=== PATIENT | female | born 1935 | race African-American/Black ===

== ENCOUNTER 2016-12-20 17:07 | Emergency (ER) | payer MEDICARE, OTHER ==
[~2016-12-20 17:07] MED LIST: 8 HOUR650 MG PO; ARAVA20 PO; ASAB PO; ASABAYER PO; CALCIUM PO; CALTRA600D PO; CARDCD240 PO; CARTIA XT240 MG/24 PO; CEFT5 PO; CONSTULOSE PO; COREG6 PO; DILT-XR240 MG PO; EZFE 200200 MG PO; GLUCOTRO10 PO; GLUCOTROL5 PO; HCTZ25B PO; HYDROCHLOROT25 MG PO; IMDUR30 PO; INSULIN; INSULIN SQ; IRON325 MG PO; KDUR20 PO; KLOR-CON 1010 MEQ PO; KLOR-CON M1010 MEQ PO; KLOR-CON M2020 MEQ PO; KLOR-CON20 MEQ PO; L40 PO; LANTUS SC; LANTUSCART SC; LIPITOR40 PO; MIRALAXPKT PO; MOBIC7.5 PO; NOVOLOG SC; OS500+D PO; P10 PO; P5 PO; PREDNISONE2.5 MG PO; PROTONIX PO; SPIRO25 PO; TYLENOL ARTH650 MG PO; ULTRAM50 PO; VIT D PO; VITAMIN D PO; VITAMIN D1000 UNI1 PO; VITAMIN E PO; VITD PO; ZOFRAN8 PO
[2016-12-22] MEDS ORDERED: CONSTULOSE PO (04:59)
[2016-12-22] MEDS ORDERED: KDUR10 PO (04:59)
[2016-12-22] MEDS ORDERED: URSO FORTE500 MG PO (05:00)
[2016-12-22] MEDS ORDERED: DEMA10T PO (05:00)
[2016-12-22] MEDS ORDERED: ARAVA10 PO (05:00)
== END 2016-12-20 18:00 | disposition home or self-care (01) ==
LOC: ER 17:07
DX: M25.561 Pain in right knee (principal); M25.551 Pain in right hip; I11.0 Hypertensive heart disease with heart failure; I50.9 Heart failure, unspecified; E11.9 Type 2 diabetes mellitus without complications; Z79.4 Long term (current) use of insulin; Z79.82 Long term (current) use of aspirin; Z79.52 Long term (current) use of systemic steroids; Z79.899 Other long term (current) drug therapy
CPT/HCPCS: 73502-RT; 73560-RT; 96372; 99283; J2405

== ENCOUNTER 2016-12-21 10:28 | Emergency (ER) | payer MEDICARE, OTHER ==
[2016-12-21 09:30] LABS: BASOPHILS 0.3 %; BASOPHILS ABSOLUTE 0.03 10/3/uL (0.0-0.16); EOSINOPHILS ABSOLUTE 0.19 10/3/uL (0.0-0.53); HEMATOCRIT 30.1 % (36.0-48.0); HEMOGLOBIN 9.4 g/dL (12.0-16.0); IMMATURE GRANULOCYTES 0.2 %; IMMATURE GRANULOCYTES ABSOLUTE 0.02 10/3/uL (0.0-0.11); LYMPHOCYTES 4.5 %; LYMPHOCYTES ABSOLUTE 0.42 10/3/uL (0.67-4.30); MEAN CORPUS HGB CONC 31.2 g/dL (32.0-36.0); MEAN CORPUSCULAR HEMOGLOB 30.5 pg (26.0-34.0); MEAN CORPUSCULAR VOLUME 97.7 fL (80-100); MONOCYTES 9.8 %; MONOCYTES ABSOLUTE 0.92 10/3/uL (0.21-1.20); NEUTROPHILS 83.2 %; NEUTROPHILS ABSOLUTE 7.77 10/3/uL (2.02-8.40); PLATELET COUNT 227 10/3/uL (150-400); RED CELL COUNT 3.08 10/6/uL (4.0-5.6); WHITE BLOOD CELLS 9.4 10/3/uL (4.5-10.5)
[2016-12-21 09:31] LABS: MANUAL DIFF NO %; RBC DISTRIBUTION WIDTH 15.8 % (12.0-16.0)
[2016-12-21 09:48] LABS: A/G RATIO 0.6 (0.7-1.9); ALBUMIN 2.2 G/DL (3.5-5.0); ALKALINE PHOSPHATASE 108 U/L (45-117); BUN (BLOOD UREA NITROGEN) 22 MG/DL (6-23); CALCIUM, SERUM 8.4 MG/DL (8.5-10.4); CHLORIDE, SERUM 106 MMOL/L (96-112); CO2 (CARBON DIOXIDE) 28 MMOL/L (24-34); CREATININE 1.77 MG/DL (0.55-1.02); GFR AFRICAN AMERICAN 31 ML/MIN (>=60); GFR NON AFRICAN AMERICAN 27 ML/MIN (>=60); GLOBULIN 3.4 G/DL (2.5-4.1); GLUCOSE, SERUM 157 MG/DL (60-99); POTASSIUM, SERUM 3.9 MMOL/L (3.5-5.3); PROTIME (NOT ORD) 13.2 SEC (12.0-14.5); SGOT(AST) 42 U/L (5-40); SGPT(ALT) 19 U/L (5-65); SODIUM, SERUM 143 MMOL/L (135-148); TOTAL BILIRUBIN 0.6 MG/DL (0-1.2); TOTAL PROTEIN 5.6 G/DL (6.0-8.5)
[2016-12-21 09:55] LABS: LACTATE 2.2 MMOL/L (0.3-2.4)
[2016-12-21 10:04] LABS: ASCORBIC ACID (UR NOT ORDER) 20 (NEG); BILIRUBIN, URINE NEGATIVE (NEG); ER URINALYSIS TAT 0 Hrs 15 Mins; KETONE, URINE NEGATIVE (NEG); LEUKOCYTE ESTERASE(NOT OR NEG (NEG); NITRITE (URINE) NEG (NEG); WBC (NOT ORDERED) (RFLEX) < 1 (0-5)
[2016-12-21 10:30] LABS: PROCALCITONIN 0.57 ng/mL (<0.5)
[2016-12-22] MEDS ORDERED: KDUR10 PO (04:59)
[2016-12-22] MEDS ORDERED: CONSTULOSE PO (04:59)
[2016-12-22] MEDS ORDERED: ARAVA10 PO (05:00)
[2016-12-22] MEDS ORDERED: DEMA10T PO (05:00)
[2016-12-22] MEDS ORDERED: URSO FORTE500 MG PO (05:00)
== END 2016-12-21 12:19 | disposition home or self-care (01) ==
LOC: ER 10:28
PROVIDERS: Emergency Medicine
DX: E11.65 Type 2 diabetes mellitus with hyperglycemia (principal); J44.9 Chronic obstructive pulmonary disease, unspecified; I10 Essential (primary) hypertension; D64.9 Anemia, unspecified; Z79.899 Other long term (current) drug therapy; Z79.4 Long term (current) use of insulin; Z79.52 Long term (current) use of systemic steroids; Z79.82 Long term (current) use of aspirin
CPT/HCPCS: 71010; 80053; 81001; 82962; 83605; 84145; 85025; 85610; 85730; 87040; 93005; 99285

== ENCOUNTER 2016-12-22 06:13 | Inpatient (IN) | payer MEDICARE, OTHER ==
--- NOTE | ~2016-12-22 | HP ---
History And Physical [facility] [address] [place]. [address] NAME: ANGELIA AGUILAR : 37 STATUS : ADM Tiffany PAT#: [id number] AGE: 80 ADM/REG DATE : 12/22/16 MR#: [id number] REPORT SERV DATE: 12/22/16 DICTATED BY: ALINE RILEY DATE: 12/22/16 REPORT STATUS : Draft TRANSCRIBED BY: MODL DATE: 12/22/16 DATE OF ADMISSION: 12/22/2016 POINT OF ENTRY: [facility] Emergency Department. CHIEF COMPLAINT: Altered mental status and hypoglycemia. 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 Unfortunately, I am unable to obtain any history from the patient as she currently has expressive aphasia and no family is at bedside. According to ER physician as well as her nurse, EMS was activated for altered mental status. She was found to have a blood sugar of 29, received an amp of D50 en route to the ER. On recheck, blood sugar was 210 here in the emergency department. She was felt to be somewhat altered; however, both Dr. Sánchez as well as her ER nurse state that at the time of initial assessment the patient's speech was clear and coherent. Initial evaluation in the emergency department notable for a troponin value of 6.13, creatinine of 1.7 with a baseline of 1.4. Urinalysis was negative for infection. EKG shows some anterior T-wave inversions which appears to be unchanged from prior EKG. She is subsequently admitted to the Hospital Service for further evaluation and management. At the time of my initial assessment the patient was awake, alert, following basic commands and moving all extremities well; however, has a very dense expressive aphasia which was felt to be new, therefore she was sent for stat CT scan of the brain, which was negative and given the patient's elevated creatinine level was not eligible for CTA of brain, therefore she was sent for a stat limited MRI of the brain, which per report from Dr. Arreaga was also negative for acute stroke. The patient was subsequently admitted to the Hospitalist Service for further evaluation and management. REVIEW OF SYSTEMS: Comprehensive review of systems unable to be obtained secondary to the patient's altered mental status and aphasia. PREVIOUS MEDICAL HISTORY: 1. Rheumatoid arthritis, on chronic steroid therapy. 2. Uncontrolled insulin-dependent diabetes mellitus, type 2. 3. Hypertension. 4. Insulin-dependent. 5. Iron-deficiency anemia. 6. Chronic kidney disease, stage 3, baseline creatinine approximately 1.3 to 1.5. 7. Chronic systolic congestive heart failure with an ejection fraction of approximately History And Physical [facility] [id number] [place]. [address] NAME: ANGELIA AGUILAR : 37 STATUS : ADM Tiffany PAT#: [id number] AGE: 80 ADM/REG DATE : 12/22/16 MR#: [id number] REPORT SERV DATE: 12/22/16 DICTATED BY: ALINE RILEY DATE: 12/22/16 REPORT STATUS : Draft TRANSCRIBED BY: MARK DATE: 12/22/16 20% felt to be nonischemic cardiomyopathy. 8. COPD. PAST SURGICAL HISTORY: 1. Cataracts. 2. Ovarian cyst. HOME MEDICATIONS: 1. Carvedilol 6.25 mg b.i.d. 2. Vitamin D 50,000 units weekly. 3. Ferrous polysaccharide 200 mg daily. 4. Insulin sliding scale. 5. Lantus 15 units in the morning. 6. Lactulose 15 mL b.i.d. 7. Leflunomide 10 mg daily. 8. Potassium chloride 10 mEq b.i.d. 9. Prednisone 2.5 mg daily. 10.Demadex 20 mg daily. 11.Tramadol 50 mg q.8 hours. 12.Ursodiol 500 mg b.i.d. SOCIAL HISTORY: Denies any tobacco, alcohol, or illicits. FAMILY MEDICAL HISTORY: Coronary artery disease, diabetes, and cancer. LABS AND IMAGIN. White count is 7.2, hemoglobin is 10.0, hematocrit is 31.9, platelet count is 205, and INR is 1.0. 2. Sodium is 142, potassium 4.0, chloride 105, carbon dioxide 26, BUN 26, creatinine 1.74, glucose is 156, calcium is 8.3, and magnesium is 2.5. 3. Troponin is 6.13. 4. Chest x-ray per my review shows no acute cardiopulmonary abnormality. 5. EKG per my review shows some anterior T-wave inversions which appeared to be unchanged compared to previous EKG from prior day, but are new from EKG from 2016. 6. Urinalysis; spec gravity is 1.015 hazy with many bacteria, but negative leukocyte esterase, negative nitrites, and only 2 white blood cells per high-powered field. 7. CT scan of the brain shows no acute cardiopulmonary abnormality. 8. Stat limited MRI of the brain shows no evidence of acute stroke. PHYSICAL EXAMINATION: VITAL SIGNS: Temperature is 96.0 degrees Fahrenheit, pulse is 77, respirations 14, saturating 94% on room air, blood pressure 156/61, and on recheck temperature is now 96.7 degrees Fahrenheit. GENERAL: The patient is awake and alert. She is following all my commands appropriately with an appropriate level of consciousness. She is a chronically ill-appearing elderly female. No family is at bedside. HEENT: Atraumatic and normocephalic. Moist mucous membranes. Pupils are equal, round, History And Physical [address] [address] NAME: ANGELIA AGUILAR : 37 STATUS : ADM Tiffany PAT#: [id number] AGE: 80 ADM/REG DATE : 12/22/16 MR#: [id number] REPORT SERV DATE: 12/22/16 DICTATED BY: ALINE RILEY DATE: 12/22/16 REPORT STATUS : Draft TRANSCRIBED BY: MODL DATE: 12/22/16 reactive to light and accommodation. Extraocular eye movements intact. No scleral icterus. NECK: No jugular venous distention. No carotid bruits. CARDIAC: Regular rate and rhythm. No murmurs, rubs, or gallops. Normal S1. Normal S2. LUNGS: Decreased breath sounds in the bases. Otherwise, no wheezes, rhonchi, or crackles. ABDOMEN: Soft, nontender, and nondistended. Good bowel sounds. No rebound, guarding, or rigidity. EXTREMITIES: Warm and perfused. No cyanosis, clubbing, or edema. SKIN: Warm and dry. PSYCH: Affect is unable to be assessed. NEURO: Cranial nerves 2 through 12 are grossly intact. She has fairly significant expressive aphasia and possibly some mild component of receptive aphasia. She is moving all extremities well and following commands. ASSESSMENT AND PLAN: Ms Aguilar is a 80-year-old female, who is brought to the emergency department for altered mental status thought to be secondary to symptomatic hypoglycemia status post correction of hypoglycemia, now with new onset expressive aphasia concerning for a possible acute stroke; however, now with negative CT as well as MRI imaging. PROBLEM LIST: 1. Altered mental status. 2. Symptomatic hypoglycemia. 3. Expressive aphasia. 4. Elevated troponin level. 5. Acute kidney injury on chronic kidney disease, stage 3. PLAN: 1. Expressive aphasia. The patient's new onset expressive aphasia concerning for acute stroke; however, stat CT of the brain as well as stat limited MRI of the brain are negative. I had discussion with Dr. Sands and given negative imaging this expressive aphasia is likely non-neurologic in origin, therefore she is not a tPA candidate. He recommended further workup including recheck of her blood sugar as well as further laboratory evaluation for her expressive aphasia. 2. Symptomatic hypoglycemia. This appears to be their second ER visit in 36 hours for symptomatic hypoglycemia. We will hold the patient's insulin. Continue her on D10 infusion to ensure persistent correction of her hypoglycemia. Consult family living educator for assistance. Given recurrent hyperglycemia we will check standard hypoglycemia labs including insulin level, proinsulin level, serum C-peptide, beta hydroxybutyrate, cortisol level, as well as sulfonylurea screen. 3. Elevated troponin level. The patient per ER physician denies any chest pain. EKG just show some anterior T-wave inversions which is unchanged compared to prior EKG. Unclear as to etiology of the patient's severe troponin elevation we will consult Cardiology for assistance. Continue to trend out cardiac enzymes. 4. Acute kidney injury on chronic kidney disease, stage 3. The patient's creatinine 1.4 is elevated over her baseline of approximately 1.3 to 1.4. We will provide some gentle IV fluid hydration, holding her Demadex. 5. Altered mental status. I suspect this is multifactorial in etiology secondary to hyperglycemia as well as possible other etiologies. Checking standard labs including History And Physical [address] [place]. [address] NAME: ANGELIA AGUILAR : 37 STATUS : ADM Tiffany PAT#: [id number] AGE: 80 ADM/REG DATE : 12/22/16 MR#: [id number] REPORT SERV DATE: 12/22/16 DICTATED BY: ALINE RILEY DATE: 12/22/16 REPORT STATUS : Draft TRANSCRIBED BY: MARK DATE: 12/22/16 ammonia level, B12, folate. Of note, cranial imaging is unremarkable. 6. DVT prophylaxis. Heparin subcu. CODE STATUS: The patient wishes to be full code. KURT/MARK Aline Riley MD / [id number] CC: Alessandra Martins M.D.
--- NOTE | ~2016-12-22 | PRECARD ---
H&P [facility] [address] [place]. [address] NAME: ANGELIA AGUILAR : 37 STATUS : ADM Tiffany PAT#: [id number] AGE: 80 ADM/REG DATE : 12/22/16 MR#: [id number] REPORT SERV DATE: 12/22/16 DICTATED BY: SMITA PYLE DATE: 12/22/16 REPORT STATUS : Draft TRANSCRIBED BY: MARK DATE: 12/22/16 DATE OF ADMISSION: 12/22/2016 HISTORY OF PRESENT ILLNESS: Ms Angelia Aguilar is a 80-year-old woman, who was brought to the emergency room because of confusion, altered mental status with hypoglycemia, blood sugar of 29. Cardiology was consulted because of abnormal troponin. Ms Aguilar has a history poor controlled diabetes, nonischemic cardiomyopathy, ejection fraction about 20%. She also has rheumatoid arthritis, chronic steroid therapy. She has hypertension, chronic kidney disease, creatinine has been about 1.5 as well as nonischemic cardiomyopathy, ejection fraction about 20%. She has COPD. She was brought to the emergency room with confusion. Her blood sugar was found to be 29. Upon presentation, she had expressive aphasia. She did receive a glucose en route. On arrival, her blood sugar increased to 210. By report, her speech had markedly improved with this glucose infusion. Her dysarthria has completely resolved. On repeated questioning, the patient absolutely denies any chest discomfort whatsoever. She has no orthopnea or PND. She denies palpitations. She had a head CT. Apparently, the head CT demonstrated no acute stroke. She had MRI which was also negative for stroke by the record. Again, she absolutely denies chest discomfort on repeated questioning. PAST MEDICAL HISTORY: Rheumatoid arthritis, hypertension, and diabetes. MEDICATIONS: Carvedilol, vitamin D, iron, insulin, potassium, prednisone, Demadex, tramadol, and Ursodiol. SOCIAL HISTORY: No alcohol or tobacco. FAMILY HISTORY: Noncontributory. REVIEW OF SYSTEMS: Complete review of systems obtained, pertinent negative and unremarkable except as noted above. All systems addressed. PHYSICAL EXAMINATION: Bp: 150, heart rate: About 75, temp: 96. GENERAL: She appears chronically ill, in no distress, her speech is articulate, she is oriented x4. HEENT: No xanthelasma; lips without cyanosis LUNGS: Clear to auscultation, no wheezes, rales or rhonchi; good breath sounds. H&P [address] [address] NAME: ANGELIA AGUILAR : 37 STATUS : ADM Tiffany PAT#: [id number] AGE: 80 ADM/REG DATE : 12/22/16 MR#: [id number] REPORT SERV DATE: 12/22/16 DICTATED BY: SMITA PYLE DATE: 12/22/16 REPORT STATUS : Draft TRANSCRIBED BY: MARK DATE: 12/22/16 COR: No JVD or hepatojugular reflux, no murmurs, rubs or gallops, impulse mid clavicular line without carotid or abdominal bruits; normal S1 and S2. ABDOMEN: Bowel sounds positive, normal activity, without tenderness, masses or hepatosplenomegaly. EXTREMITIES: No edema, cyanosis. SKIN: Normal turgor. Ms: Normal muscle strength, without kyphosis/scoliosis. NEURO/PSYCH: Alert and oriented times 4, no apparent anxiety or depression. LABORATORIES: White count 7.2, hematocrit 31.9, and platelet count 205,000. BUN is 26, creatinine 1.7. Troponin is 6.13. EKG; not available to me yet, I am still trying to find the EKG to review. ASSESSMENT: 1. Ms Aguilar is a very nice 80-year-old woman with a nonischemic cardiomyopathy with ejection fraction of 20%. She came to the emergency room with confusion, altered mental status with dysarthria. Her glucose was 29. She received glucose infusion, glucose increased to 210. Her symptoms have markedly improved. Troponin level was elevated. Again, on repeated questioning, she has absolutely no chest discomfort whatsoever. 2. Her presentation certainly does not suggest an acute coronary syndrome. I will repeat EKG if I cannot find the EKG for review. 3. She may have type 2, elevated troponin with demand ischemia. PLAN: 1. Serial biomarkers. 2. I will defer blood-pressure control evaluation to the Neurology and Hospitalist Team, given her the possibility of stroke though, without diagnostic imaging by cranial studies. 3. Reassess ejection fraction with echocardiogram. 4. Subsequent plan would depend upon her perfusion on her biomarkers. MT/MARK Smita Pyle M.D. / [id number] CC: Alessandra Martins M.D.
--- NOTE | ~2016-12-22 | DS ---
Discharge Summary [facility] [address] [place]. [address] NAME: ANGELIA AGUILAR : 37 STATUS : DIS IN PAT#: [id number] AGE: 80 ADM/REG DATE : 12/22/16 MR#: [id number] REPORT SERV DATE: 12/25/16 DICTATED BY: SAMMY BENOIT DATE: 12/24/16 REPORT STATUS : Draft TRANSCRIBED BY: MODL DATE: 12/24/16 ADMISSION DATE: 12/22/2016 DISCHARGE DATE: 12/24/2016 CONSULTING PHYSICIANS: Dr. Je Pyle, Cardiology. Dr. Holly, Neurology. DISCHARGE DIAGNOSES: 1. Acute hypoglycemic brain injury, metabolic encephalopathy. 2. Ixz-RX-fgpejkhrc myocardial infarction. 3. Diabetes mellitus type 2 with A1c 7.1%. 4. Musculoskeletal pain, posterior right thigh and popliteal region. 5. New diagnosis of hypothyroidism. 6. Rheumatoid arthritis, on chronic prednisone and Arava. 7. Nonischemic cardiomyopathy with left ventricular ejection fraction of 40%. 8. Mild left upper extremity edema after she pulled an IV site out. 9. Hypertension. 10.Stage 3 chronic kidney disease status post acute kidney injury, transient, resolved. 11.Chronic liver disease, unspecified type. HISTORY: This patient was brought to the emergency room by paramedics. The story initially was difficult to get because the patient was obtunded and I finally was able to get a hold of the daughter on the morning of 12/23/2016, Fredy Hernández. She states that the son, who is cared for by the patient noticed the patient could not be awakened when got the neighbors and they called 911. Reportedly, the blood sugar was 29. The patient was brought to the emergency room at [facility]. She had been given some intravenous glucose. She arrived to our ER at 0410 hours. The patient was confused, disoriented, lethargic. She was referred to our team for inpatient care and she was placed on D10% glucose. The patient's blood sugars did not go up for very high. We ran that D10 for over 24 hours. Talking to her daughter, Fredy, it sounds like the patient is in charge of her own sugars and the patient had actually been to the ER couple of times recently. On 12/20/2016, she had been there for some pain in the posterior right knee. Then on 12/21/2016, she was there for hypoglycemia, which Fredy states was treated and then they were not told to reduce her home insulin as far as she knows. She states that the patient's blood glucose was 269 around 6 p.m. on 12/21/2016 after supper and the patient appropriately took 4 units of NovoLog per her sliding scale. The daughter fredy is not sure when the patient took her last dose of Lantus because she states the patient does that herself. Here, we have not started back on any long-acting insulins. Her A1c is 7.1%. She appears to have a likelihood that she has very poor or no ability to recognize hypoglycemia, so we are hoping that with metformin, she might have reasonable control of her sugars. This will not cause hypoglycemia typically. The patient will need to be monitored because she does have a history of some unspecified chronic liver disease for which she goes to see Dr. Kayden Butterfield. I did get a copy of Dr. Butterfield's note of 12/02/2016. The office note indicated that they did not know the cause of her chronic liver problem. There was no obstruction. They thought it might be secondary to heart failure and medications, might be an inflammatory process, but they were just not sure. They recommended to avoid alcohol. Again, it will be Discharge Summary [address] [place]. [address] NAME: ANGELIA AGUILAR : 37 STATUS : DIS IN PAT#: [id number] AGE: 80 ADM/REG DATE : 12/22/16 MR#: [id number] REPORT SERV DATE: 12/25/16 DICTATED BY: SAMMY BENOIT DATE: 12/24/16 REPORT STATUS : Draft TRANSCRIBED BY: MODMarcos DATE: 12/24/16 important to follow the patient's hepatic function and renal function and blood sugars with the initiation of metformin. The reason I have initiated metformin is that it may help control hyperglycemia with far lower risk of hypoglycemia. The patient each day is more alert. Initially, she could barely give her name, could not follow any simple instructions. Each day, she improved in her abilities. Today, she is alert, sitting on the side of the bed. She gives her full name. She is oriented to place. She thinks it is 2006. She follows commands very well and her sugars are staying between 96 to 170s, except she did have a couple up at 260 and 218. One of those, she was on D10 still. She also was noted to have elevation of her troponin when she arrived. It is not clear why the ER ankush this value in the first place, but her first troponin was 6.13, went up to a high of 7.83. She was seen by Cardiology, Dr. Je Pyle. He and Dr. Jim Sandhu saw the patient and did not recommend any further interventions, just medical therapy. Echocardiogram showed left ventricular ejection fraction at 40%. She has severe right ventricular enlargement and septal flattening and moderate pulmonary hypertension. She has mild to moderate mitral and tricuspid regurgitation. Pulmonary artery pressure is 50. These right heart changes are not completely new. She had no evidence of a dpjif-ux-ksfm shunt. Her ejection fraction currently was better than it had been in the distant past. She was seen by Neurology. She had a CT scan of the brain by stroke protocol on 12/22/2016 showing [id number] generalized atrophy, but in no acute abnormalities. MRI of the brain on 12/22/2016 revealed no acute abnormalities, some chronic white matter changes, old bleed in the thalamus. No acute changes noted. Carotid ultrasound revealed no significant carotid stenosis. The vertebrals had forward flow bilaterally. There was moderate plaque in the right carotid bifurcation, but no significant stenosis. MRA of the brain showed no significant arterial cut off. DISCHARGE MEDICATIONS: Include aspirin 81 mg daily; Lipitor 40 mg at bedtime; Coreg 6.25 mg b.i.d.; vitamin D 50,000 units every Tuesday; Ez iron 200 mg daily; NovoLog level one a.c. and h.s.; Arava 10 mg daily; Synthroid 75 mcg daily (this was started here because she was found to have a TSH elevation at 33.1, which is consistent with new diagnosis of hypothyroidism); ursodiol 500 mg b.i.d., which is chronic; prednisone 7.5 mg daily for her liver problems and rheumatoid arthritis, which is chronic; Tylenol 650 q.8 hours p.r.n. mild pain; glucose tablets p.r.n. hypoglycemia; Ultram 50 mg t.i.d. p.r.n. iwixuehv-mz-htzeqg pain; lactulose 30 mL p.o. twice a day p.r.n. constipation; metformin 500 mg p.o. b.i.d. with meals; and lisinopril, could not start on an JANETTE inhibitor because of her recent acute kidney injury and her EF is now 40%. The patient is to follow up with Dr. Je Pyle of Cardiology in a month and with PCP and with Hepatology. I spent 35 minutes today with the patient and with discharge planning. Discharge Summary [address] [address] NAME: ANGELIA AGUILAR : 37 STATUS : DIS IN PAT#: [id number] AGE: 80 ADM/REG DATE : 12/22/16 MR#: [id number] REPORT SERV DATE: 12/25/16 DICTATED BY: SAMMY BENOIT DATE: 12/24/16 REPORT STATUS : Draft TRANSCRIBED BY: MARK DATE: 12/24/16 RSG/MARK Sammy Benoit M.D. / [id number] CC: Alessandra Martins M.D. Chirag Patel, M.D. [facility] Alessandra Nguyen M.D. Indravadan Shah, M.D.
--- NOTE | ~2016-12-22 | CN ---
Consultation Report [facility] [address] [place]. [address] NAME: ANGELIA AGUILAR : 37 STATUS : ADM Tiffany PAT#: [id number] AGE: 80 ADM/REG DATE : 12/22/16 MR#: [id number] REPORT SERV DATE: 12/22/16 DICTATED BY: GRACE ALEJANDRE DATE: 12/22/16 REPORT STATUS : Draft TRANSCRIBED BY: MODL DATE: 12/22/16 NEUROLOGY CONSULTATION DATE OF CONSULTATION: 12/22/2016 REASON FOR CONSULTATION: Aphasia, hypoglycemia, and encephalopathy. HOSPITALIST: Dr. Mikel Benoit. HISTORY OF PRESENT ILLNESS: The patient is a 80-year-old female, who came to the emergency department with altered mental status. Upon arrival, it was noted that her blood sugar was 29. The patient does have a long-standing history of diabetes. She is insulin-dependent. Unfortunately, no family was with the patient to give a history. The patient had expressive aphasia and was unable to "fill in the blanks." The patient was given an amp of D50 en route to the ER via paramedics, and upon recheck, her blood sugar was 210. By that time, the ER physician felt that her speech had improved. PAST MEDICAL HISTORY: Rheumatoid arthritis (on steroids), diabetes mellitus type 2, hypertension, anemia, chronic kidney disease stage 3, chronic systolic heart failure with an ejection fraction of 20%, COPD, and history of tobacco abuse. PAST SURGICAL HISTORY: Bilateral cataract extraction with lens implantation and ovarian cyst removal. HOME MEDICATIONS: Includes Coreg 6.25 mg b.i.d., vitamin D3 50,000 units weekly, EZFE 200 mg daily, NovoLog insulin subcu on a sliding scale, Lantus SoloSTAR 15 units every morning, lactulose 10 mg twice a day, Arava 10 mg p.o. daily, K-Tab 10 mEq b.i.d., prednisone 5 mg daily, Demadex 20 mg daily, Ultram 50 mg q.8 hours p.r.n., and Ovidio Forte 500 mg b.i.d. ALLERGIES: INCLUDE CONTRAST DYE, NSAIDS, CELEBREX, AND TOBRAMYCIN. SOCIAL HISTORY: The patient is single. Her son lives with her. He has cerebral palsy and she just has the one child. She is a remote smoker. She does not drink alcohol or use illicits. FAMILY HISTORY: Unable to obtain from the patient. According to the daughter, both of her parents are , and she has one sister who is still alive. REVIEW OF SYSTEMS: Again, unable to obtain from the patient. PHYSICAL EXAMINATION: GENERAL: The patient is a 80-year-old female, who stands 5 feet 3 inches tall. She weighs 146 pounds. Consultation Report [address] [place]. [address] NAME: ANGELIA AGUILAR : 37 STATUS : ADM Tiffany PAT#: [id number] AGE: 80 ADM/REG DATE : 12/22/16 MR#: [id number] REPORT SERV DATE: 12/22/16 DICTATED BY: GRACE ALEJANDRE DATE: 12/22/16 REPORT STATUS : Draft TRANSCRIBED BY: MARK DATE: 12/22/16 VITAL SIGNS: Blood pressure 157/59, she is afebrile. Heart rate 78, respiratory rate 16, and O2 saturations on 2 L nasal cannula 96%. NEUROLOGIC: The patient is awake. She is alert. She is only oriented to person, she is not oriented to place, time, or situation. She is not dysarthric. Her speech is fluent, but she does have episodes of aphasia which seems to be more receptive than expressive at this point. She does demonstrate some apraxia. Pupils are 3 mm PERRLA. EOMs are intact. She does have a slight right facial droop (most likely chronic). No reported sensory deficits in the facial area. She can move all extremities x4 spontaneously. Unable to test finger- to-nose or [id number] (the patient cannot comprehend the command). Pronator drift; there is no pronator drift. She does have slight asterixis. Upper extremity strength is 5/5 on the left, and 4/5 on the right. Upper DTRs 1+ on the right and 2+ on the left. Lower extremities, strength is 4/5 bilaterally. Patellar reflexes 1+ bilaterally. Downgoing toes. NECK: No carotid bruits, JVD, or thyromegaly. CHEST: Lung sounds are clear. Few scattered rhonchi. CARDIAC: Regular rate and rhythm. LABORATORY DATA: CBC is normal. BMP: BUN is 26, creatinine 1.74, and glucose is 156. Troponin is 6.13. Urinalysis is negative for UTI. MRI of the brain without gadolinium shows an old previous bleed in the thalamic region, and an old right cerebellar infarct. MRA of the brain shows no proximal vessel cut off. ASSESSMENT/PLAN: 1. Acute encephalopathy and mild aphasia, most likely due to hypoglycemic episode which occurred yesterday. The patient's MRI is negative for acute infarct. 2. History of stroke. The patient will be placed on aspirin 81 mg daily, and Lipitor 40 mg at bedtime. Lab work will be drawn and medications will be adjusted accordingly. 3. Elevated troponin level. Serial troponins will be drawn and the patient is followed by Cardiology. Thank you again for including us in consultation. We will continue to follow with you. CLAYTON/MARK Grace Alejandre [facility]- / [id number] CC: Alessandra Martins M.D.
[2016-12-22 05:10] LABS: BASOPHILS 0.1 %; BASOPHILS ABSOLUTE 0.01 10/3/uL (0.0-0.16); EOSINOPHILS 0.3 %; EOSINOPHILS ABSOLUTE 0.02 10/3/uL (0.0-0.53); HEMATOCRIT 31.9 % (36.0-48.0); IMMATURE GRANULOCYTES 0.3 %; IMMATURE GRANULOCYTES ABSOLUTE 0.02 10/3/uL (0.0-0.11); LYMPHOCYTES 5.1 %; LYMPHOCYTES ABSOLUTE 0.37 10/3/uL (0.67-4.30); MEAN CORPUS HGB CONC 31.3 g/dL (32.0-36.0); MEAN CORPUSCULAR HEMOGLOB 30.3 pg (26.0-34.0); MEAN CORPUSCULAR VOLUME 96.7 fL (80-100); MONOCYTES 7.3 %; MONOCYTES ABSOLUTE 0.53 10/3/uL (0.21-1.20); NEUTROPHILS 86.9 %; NEUTROPHILS ABSOLUTE 6.28 10/3/uL (2.02-8.40); PLATELET COUNT 205 10/3/uL (150-400); RBC DISTRIBUTION WIDTH 15.4 % (12.0-16.0); WHITE BLOOD CELLS 7.2 10/3/uL (4.5-10.5)
[2016-12-22 05:11] LABS: ASCORBIC ACID (UR NOT ORDER) 20 (NEG); BILIRUBIN, URINE NEGATIVE (NEG); ER URINALYSIS TAT 0 Hrs 00 Mins; KETONE, URINE NEGATIVE (NEG); LEUKOCYTE ESTERASE(NOT OR NEG (NEG); NITRITE (URINE) NEG (NEG); WBC (NOT ORDERED) (RFLEX) 2 (0-5)
[2016-12-22 05:13] LABS: MANUAL DIFF NO %
[2016-12-22 05:19] LABS: PARTIAL THROMBO TIME 26.1 SEC (22.5-37.2)
[2016-12-22 05:26] LABS: CALCIUM, SERUM 8.3 MG/DL (8.5-10.4); CHLORIDE, SERUM 105 MMOL/L (96-112); CO2 (CARBON DIOXIDE) 26 MMOL/L (24-34); CREATININE 1.74 MG/DL (0.55-1.02); GFR AFRICAN AMERICAN 32 ML/MIN (>=60); GFR NON AFRICAN AMERICAN 27 ML/MIN (>=60); GLUCOSE, SERUM 156 MG/DL (60-99); SODIUM, SERUM 142 MMOL/L (135-148)
[2016-12-22 05:27] LABS: BUN (BLOOD UREA NITROGEN) 26 MG/DL (6-23); CHEST PAIN PROFILE TAT 0 Hrs 23 Mins; TROPONIN I 6.13 NG/ML (<0.05)
[~2016-12-22 06:13] MED LIST changes: +ARAVA10 PO; +DEMA10T PO; +KDUR10 PO; +URSO FORTE500 MG PO
[2016-12-22 12:45] LABS: BASOPHILS 0.3 %; BASOPHILS ABSOLUTE 0.03 10/3/uL (0.0-0.16); EOSINOPHILS 0.4 %; EOSINOPHILS ABSOLUTE 0.05 10/3/uL (0.0-0.53); HEMATOCRIT 29.5 % (36.0-48.0); HEMOGLOBIN 9.4 g/dL (12.0-16.0); IMMATURE GRANULOCYTES 0.2 %; IMMATURE GRANULOCYTES ABSOLUTE 0.02 10/3/uL (0.0-0.11); LYMPHOCYTES 4.8 %; LYMPHOCYTES ABSOLUTE 0.54 10/3/uL (0.67-4.30); MEAN CORPUS HGB CONC 31.9 g/dL (32.0-36.0); MEAN CORPUSCULAR HEMOGLOB 30.2 pg (26.0-34.0); MEAN CORPUSCULAR VOLUME 94.9 fL (80-100); MEAN PLATELET VOLUME 9.2 fL (9.2-13.0); MONOCYTES 7.5 %; MONOCYTES ABSOLUTE 0.83 10/3/uL (0.21-1.20); NEUTROPHILS 86.8 %; NEUTROPHILS ABSOLUTE 9.67 10/3/uL (2.02-8.40); PLATELET COUNT 226 10/3/uL (150-400); RBC DISTRIBUTION WIDTH 15.3 % (12.0-16.0); RED CELL COUNT 3.11 10/6/uL (4.0-5.6)
[2016-12-22 12:46] LABS: MANUAL DIFF NO %; WHITE BLOOD CELLS 11.1 10/3/uL (4.5-10.5)
[2016-12-22 12:53] LABS: PARTIAL THROMBO TIME 26.1 SEC (22.5-37.2); PROTIME (NOT ORD) 12.8 SEC (12.0-14.5)
[2016-12-22 12:58] LABS: AMMONIA < 10 UMOL/L (11-32)
[2016-12-22 13:04] LABS: B NATRIURETIC PEPTIDE (BNP) 1225.5 PG/ML (< 100.0)
[2016-12-22 13:17] LABS: AMPHETAMINES (NOT ORD) NEG (NEG); BARBITURATES (NOT ORDERED NEG (NEG); BENZODIAZEPINES (NOT ORD) NEG (NEG); CANNABINOIDS (THC) NEG (NEG); COCAINE (NOT ORDERED) NEG (NEG); OPIATES POS (NEG); PHENCYCLIDINE(PCP) NEG (NEG); TRICYCLICS NEG (NEG)
[2016-12-22 13:24] LABS: CHOL/HDL RATIO(NOT ORDER) 2.9 (0-5); CK-MB 12.3 NG/ML; FREE T4 0.68 NG/DL (0.76-1.46)
[2016-12-22 13:26] LABS: FOLATE 19.2 NG/ML (>5.2); TROPONIN I 6.14 NG/ML (<0.05); ULTRASENSITIVE TSH 33.1 MCIU/ML (0.358-3.740)
[2016-12-22 14:03] LABS: ALBUMIN 2.3 G/DL (3.5-5.0); INDIRECT BILIRUBIN(NOT ORDER) 0.6 MG/DL (0.1-0.9); TOTAL BILIRUBIN 0.9 MG/DL (0-1.2); TOTAL PROTEIN 5.9 G/DL (6.0-8.5)
[2016-12-22 14:04] LABS: DIRECT BILIRUBIN 0.3 MG/DL (0.0-0.4)
[2016-12-22 19:02] LABS: CK-MB 7.6 NG/ML
[2016-12-22 19:03] LABS: CKMB INDEX (NOT ORD) 3.7
[2016-12-22 19:04] LABS: TROPONIN I 7.83 NG/ML (<0.05)
[2016-12-22 22:45] LABS: GLYCOHEMOGLOBIN (HbA1c) 7.1 % (4.7-6.1)
[2016-12-23 04:09] LABS: PROTIME (NOT ORD) 13.4 SEC (12.0-14.5)
[2016-12-23 04:46] LABS: CALCIUM, SERUM 7.5 MG/DL (8.5-10.4); CHLORIDE, SERUM 99 MMOL/L (96-112); CK-MB 5.7 NG/ML; CO2 (CARBON DIOXIDE) 22 MMOL/L (24-34); CPK 215 U/L (0-200); CREATININE 1.34 MG/DL (0.55-1.02); GFR AFRICAN AMERICAN 44 ML/MIN (>=60); GFR NON AFRICAN AMERICAN 38 ML/MIN (>=60); POTASSIUM, SERUM 4.5 MMOL/L (3.5-5.3)
[2016-12-23 04:50] LABS: BUN (BLOOD UREA NITROGEN) 18 MG/DL (6-23); CKMB INDEX (NOT ORD) 2.7; GLUCOSE, SERUM 95 MG/DL (60-99); SODIUM, SERUM 133 MMOL/L (135-148); TROPONIN I 4.53 NG/ML (<0.05)
[2016-12-24 08:09] LABS: BUN (BLOOD UREA NITROGEN) 17 MG/DL (6-23); CALCIUM, SERUM 7.7 MG/DL (8.5-10.4); CHLORIDE, SERUM 103 MMOL/L (96-112); CO2 (CARBON DIOXIDE) 18 MMOL/L (24-34); CREATININE 1.09 MG/DL (0.55-1.02); GFR AFRICAN AMERICAN 56 ML/MIN (>=60); GFR NON AFRICAN AMERICAN 48 ML/MIN (>=60); GLUCOSE, SERUM 91 MG/DL (60-99); POTASSIUM, SERUM 3.9 MMOL/L (3.5-5.3); SODIUM, SERUM 134 MMOL/L (135-148)
[2016-12-24 09:27] LABS: BASOPHILS 0.4 %; BASOPHILS ABSOLUTE 0.03 10/3/uL (0.0-0.16); EOSINOPHILS 1.5 %; EOSINOPHILS ABSOLUTE 0.11 10/3/uL (0.0-0.53); HEMATOCRIT 30.9 % (36.0-48.0); HEMOGLOBIN 9.7 g/dL (12.0-16.0); IMMATURE GRANULOCYTES 0.3 %; IMMATURE GRANULOCYTES ABSOLUTE 0.02 10/3/uL (0.0-0.11); LYMPHOCYTES 6.2 %; LYMPHOCYTES ABSOLUTE 0.44 10/3/uL (0.67-4.30); MEAN CORPUS HGB CONC 31.4 g/dL (32.0-36.0); MEAN CORPUSCULAR HEMOGLOB 29.2 pg (26.0-34.0); MEAN CORPUSCULAR VOLUME 93.1 fL (80-100); MEAN PLATELET VOLUME 9.2 fL (9.2-13.0); MONOCYTES 9.1 %; MONOCYTES ABSOLUTE 0.65 10/3/uL (0.21-1.20); NEUTROPHILS 82.5 %; PLATELET COUNT 290 10/3/uL (150-400); RBC DISTRIBUTION WIDTH 15.2 % (12.0-16.0); RED CELL COUNT 3.32 10/6/uL (4.0-5.6); WHITE BLOOD CELLS 7.2 10/3/uL (4.5-10.5)
[2016-12-24 09:28] LABS: MANUAL DIFF NO %
[2016-12-24 16:21] LABS: BETA-HYDROXYBUTYRIC ACID 0.2 mmol/L (0.0-0.29); BETA-HYDROXYBUTYRIC ACID 2.1 mg/dL (0.0-3.0)
[2016-12-24 23:23] LABS: C PEPTIDE 0.7 ng/mL (1.1-4.4)
== END 2016-12-24 15:50 | DRG 280 ==
LOC: ER 06:13 → 1SO 07:23
PROVIDERS: Emergency Medicine; Hospitalist; Internal Medicine
DX: I21.4 Non-ST elevation (NSTEMI) myocardial infarction (principal); G93.41 Metabolic encephalopathy; N17.9 Acute kidney failure, unspecified; I42.8 Other cardiomyopathies; I13.0 Hypertensive heart and chronic kidney disease with heart failure and stage 1 through stage 4 chronic kidney disease, or unspecified chronic kidney disease; I50.22 Chronic systolic (congestive) heart failure; E11.649 Type 2 diabetes mellitus with hypoglycemia without coma; R47.1 Dysarthria and anarthria; D63.1 Anemia in chronic kidney disease; J44.9 Chronic obstructive pulmonary disease, unspecified; K76.9 Liver disease, unspecified; E11.22 Type 2 diabetes mellitus with diabetic chronic kidney disease; N18.3 Chronic kidney disease, stage 3 (moderate); E03.9 Hypothyroidism, unspecified; M06.9 Rheumatoid arthritis, unspecified; Z87.891 Personal history of nicotine dependence; Z79.4 Long term (current) use of insulin; Z79.899 Other long term (current) drug therapy; Z86.73 Personal history of transient ischemic attack (TIA), and cerebral infarction without residual deficits; Z88.8 Allergy status to other drugs, medicaments and biological substances; Z88.1 Allergy status to other antibiotic agents; Z91.041 Radiographic dye allergy status
CPT/HCPCS: 70450; 70544; 70551-52; 71010; 73502-RT; 73560-RT; 80048; 80053; 80061; 80076; 80305; 81001; 82010; 82140; 82533; 82550; 82553; 82607; 82746; 82962; 83036; 83520; 83520-59; 83525; 83605; 83735; 83880; 84145; 84439; 84443; 84484; 84681; 85025; 85610; 85730; 87040; 92523-GN; 93005; 93880; 97110-GP; 97116-GP; 97161-GP; 97165-GO; 99285; A9270-GY; C8929; G8978-CJ-GP; G8979-CJ-GP; G8980-CJ-GP; G8987-CK-GO; G8988-CJ-GO; Q9957